=== PATIENT | female | born 1955 | race Caucasian/White ===

== ENCOUNTER 2018-07-26 07:27 | Day surgery (SDC) | payer BC ==
[~2018-07-26 07:27] MED LIST: ACETAMINOPHEN 1,000 MG/100 ML BTL IV ONE; CELECOXIB 100 MG CAPSULE PO ONE; CLINDAMYCIN 600MG/50ML PREMIX 600 MG/50 ML BAG IVPB ONE; FAMOTIDINE 20MG TABLET PO ONE; MECLIZINE 25 MG TABLET PO ONE; METOCLOPRAMIDE 10 MG TABLET PO ONE
[2018-07-26] MEDS ORDERED: ROPIVACAINE HCL (NAROPIN) /PF 5MG/ML 20ML VIAL IV ONE (07:28)
[2018-07-26] MEDS ORDERED: MIDAZOLAM HCL 2MG/2ML VIAL IV ONE (07:28)
[2018-07-26] MEDS ORDERED: EPHEDRINE SULFATE 50 MG/ML ML IV ONE (07:28)
[2018-07-26] MEDS ORDERED: PROPOFOL 10 MG/ML VIAL IV ONE (07:28)
[2018-07-26] MEDS ORDERED: DEXAMETHASONE 4 MG/ML 1ML VIAL IVP ONE (07:28)
[2018-07-26] MEDS ORDERED: FENTANYL PF 100MCG/2ML VIAL IV ONE (07:28)
[2018-07-26] MEDS ORDERED: LIDOCAINE 2% MDV (20MG/ML) 20ML VIAL IV ONE (07:28)
[2018-07-26] MEDS ORDERED: BUPIVACAINE 0.25% W/EPI MPF 30ML VIAL IVP ONE (07:28)
[2018-07-26] MEDS ORDERED: BUPIVACAINE LIPOSOME 266MG/20ML VIAL IV ONE (07:28)
[2018-07-26] MEDS ORDERED: ONDANSETRON HCL IV 4 MG/2 ML VIAL IVP PRN (11:00)
[2018-07-26] MEDS ORDERED: SENNOSIDES/DOCUSATE SODIUM UD CAPSULE PO PRN (11:00)
[2018-07-26] MEDS ORDERED: DIPHENHYDRAMINE HCL 25 MG CAPSULE PO PRN (11:00)
[2018-07-26] MEDS ORDERED: METOCLOPRAMIDE HCL 10 MG/2 ML VIAL IVP PRN (11:00)
[2018-07-26] MEDS ORDERED: OXYCODONE/APAP 7.5MG/325MG TABLET PO PRN ×2 (11:00)
[2018-07-26] MEDS ORDERED: MAGNESIUM HYDROXIDE 30 ML UDC PO PRN (11:00)
[2018-07-26] MEDS ORDERED: HYDROCODONE/APAP 7.5/325MG TABLET PO PRN (11:00)
[2018-07-26] MEDS ORDERED: TRAMADOL HCL 50 MG TABLET PO PRN (11:00)
[2018-07-26] MEDS ORDERED: ZOLPIDEM TARTRATE 5 MG TABLET PO PRN (11:00)
[2018-07-26] MEDS ORDERED: HYDROMORPHONE HCL 2 MG/ML VIAL IV PRN (11:00)
[2018-07-26] MEDS ORDERED: AL HYDROX/MAG HYDROX 30ML UD PO PRN (11:00)
[2018-07-26] MEDS ORDERED: TRANEXAMIC ACID 1,000 MG in 0.9 % SODIUM CHLORIDE 100ML 100 ML IVPB ONE (13:00)
[2018-07-26] MEDS: RINGERS SOLUTION,LACTATED 1,000 ML IV SCH (13:36)
[2018-07-26] MEDS: HYDROCODONE/APAP 7.5/325MG TABLET PO PRN ×2 (15:29→21:58)
[2018-07-26] MEDS: PATIENT OWN MED: LANSOPRAZOLE 30 MG PO SCH (15:30)
--- NOTE | 2018-07-26 16:50 | Rehab Evaluation ---
Patient Information - Patient Information Diagnosis: OA R knee Ordered Treatment: PT Evaluate and Treat Status: Initial Evaluation Surgery: Yes Date of Surgery: 07/26/18 History: Detail (Pt with gradual R knee degeneration. R TKA was a planned procedure.) Past Med/Heidi Hx Detail: Detail Past Medical/Surgical Hx: PAST MEDICAL/SURGICAL HISTORY Past Surgical History EGD right knee scope 2014 laparoscopy; mastectomy left; knee scope right; hernia ventral; right wrist ORIF; left wrist CTR; right foot sx(club toe); EGD-several; couple colonoscopys; PMH - Respiratory Hx Respiratory Disorders Yes Hx Sleep Apnea Yes Hx of CPAP Yes: bipap PMH - Cardiovascular Hx Cardiovascular Disorders Yes Hx Abnormal EKG Yes: "slight heart attack" 1990 Hx Chest Pain No Hx Heart Attack Yes: mild 1990 no intervention Hx Hypertension Yes: on meds good control 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[employer] [facility] PMH - Neuro Hx Neurological Disorders No PMH - GI Hx Gastrointestinal Disorders Yes Hx Gastroesophageal Reflux Yes: barrets esophagus Hx Ulcer Yes PMH - Hx Genitourinary Disorders No PMH - Endocrine Hx Endocrine Disorders No PMH - Musculoskeletal Hx Musculoskeletal Disorders Yes Hx Arthritis Yes: knee and hands Hx Osteoporosis Yes: osteopenia Comment: ostepenia PMH - Psych Hx Psychiatric Problems Yes Hx Depression Yes PMH - Hematology/Oncology Hx Hematology/Oncology Yes Disorders Hx Cancer Yes: left breast Hx Chemotherapy Yes: 1995 Hx Radiation Therapy No Premorbid Status: Detail Social History: Detail (Pt lives with spouse in two story home with 4 steps to enter and 2 handrails. Pt has a tub/hand-held shower, and a standard height toilet. Pt currently owns a RW, cane, and shower chair.) Precautions: [place], Fall - Time With Patient Total Time Spent With Patient (Min): 60 Treatment Procedures: Detail (PT eval, bed mobility, transfers, ambulation.) Subjective Information - Subjective Information Per Patient (Pt awake, alert, cooperative for therapy. Reports full sensation in operative LE.) Objective Data - Pain Pain Present: Yes Pain Intensity: 3 Pain Scale Used: Numeric (1 - 10) - Mental Status Patient Orientation: Oriented x3 - Visual Perception Appears within normal limits for therapeutic activities - ROM Not within normal limits (Impaired R knee flexion/extension ROM. CPM set at 0 degrees extension to 60 degrees flexion.) - Strength/Tone Not within normal limits (Decreased R hip flexion, R knee flexion/extension, grossly 3-/5.) - Coordination Appears within normal limits for therapeutic activities - Bed Mobility Needs Assist (Pt performed sup>sit with use of bed rails and min A for RLE movement. Pt reported lightheadedness upon sitting, resolved with seated rest.) - Transfers Needs Assist (Pt performed sit<>stand from bed using RW and min A for steadying and safety. Verbal and tactile cues given for technique. Pt performed toilet transfer using grab bars and mod A for rising/lowering control.) - Balance Balance Sitting: Good Balance Standing: Good - Sensation Intact (Intact with light touch.) - Gait Detail (Pt amb 150' with RW and min A for steadying and safety. Pt amb with step -to pattern, decreased weight shift to R, and increased use of UEs. No LOB or knee buckling.) Therapy Assessment - Therapy Assessment Detail (Pt impairments are consistent with surgery. Pt requires assistance with bed mobility, transfers, and gait. She is a good candidate for inpatient physical therapy.) Patient Education - Patient Education Teaching Topic: Exercise/Activity, Precautions Response: Verbalize Understanding Teaching Method: Discussion Teaching Recipient: Patient, Significant Other Barriers To Learning: None Problem List - Problem List Physical Therapy Problem List: Detail (Impaired bed mobility, tranfers, and gait mechanics.) Goals - Goals Physical Therapy Goals: 1) Pt will perform bed mobility independently. 2) Pt will perform transfers with least restrictive assistive device, independent. 3 ) Pt will ambulate 200' with least restrictive assistive device, independent. 4 ) Pt will ascend/descend 4 steps with B UE support and min A for steadying and safety. Prognosis - Prognosis Good Plan - Plan Physical Therapy Plan: Pt will be seen by PT 1-2 times tomorrow to work on current impairments to facilitate safe return home.
[2018-07-26] MEDS: CLINDAMYCIN 600MG/50ML PREMIX 600 MG/50 ML BAG IVPB SCH (17:41)
[2018-07-26] MEDS: TRAMADOL HCL 50 MG TABLET PO PRN (19:03)
[2018-07-26] MEDS: ASPIRIN 325 MG TAB ENTERIC-COATED PO SCH (21:53)
[2018-07-26] MEDS ORDERED: PATIENT OWN MED: GABAPENTIN 300 MG PO SCH (22:00)
[2018-07-26] MEDS ORDERED: PATIENT OWN MED: ATORVASTATIN 40 MG PO SCH (22:00)
[2018-07-27] MEDS: CLINDAMYCIN 600MG/50ML PREMIX 600 MG/50 ML BAG IVPB SCH ×2 (01:50→09:04)
[2018-07-27] MEDS: HYDROCODONE/APAP 7.5/325MG TABLET PO PRN ×2 (04:59→09:30)
[2018-07-27] MEDS: RINGERS SOLUTION,LACTATED 1,000 ML IV SCH (06:21)
[2018-07-27] MEDS: PATIENT OWN MED: LANSOPRAZOLE 30 MG PO SCH (06:22)
[2018-07-27 06:24] LABS: HEMATOCRIT 35.3 % (35.0-47.0); HEMOGLOBIN 10.9 gm/dl (11.6-16.0); MEAN CELL VOLUME 93.1 fl (81-97); MEAN CORPUSCULAR HGB CONC 30.9 g/dl (32-36); MEAN PLATELET VOLUME 10.5 fl (7.4-10.4); PLATELET COUNT 194 K/uL (130-400); RED BLOOD COUNT 3.79 M/uL (3.80-5.40); RED CELL DISTRIBUTION WIDTH 14.2 % (11.5-14.5)
[2018-07-27 06:29] LABS: MEAN CORPUSCULAR HEMOGLOBIN 28.7 pg (27-33)
[2018-07-27] MEDS: ASPIRIN 325 MG TAB ENTERIC-COATED PO SCH (09:25)
[2018-07-27] MEDS ORDERED: LISINOPRIL PO SCH (10:00)
[2018-07-27] MEDS ORDERED: PATIENT OWN MED: RALOXIFENE 60 MG PO SCH (10:00)
[2018-07-27] MEDS ORDERED: HCTZ PO SCH (10:00)
[2018-07-27] MEDS ORDERED: LISINOPRIL 20 MG TABLET PO SCH (10:00)
[2018-07-27] MEDS ORDERED: CELECOXIB 100 MG CAPSULE PO SCH (10:00)
[2018-07-27] MEDS ORDERED: PATIENT OWN MED: SERTRALINE 100 MG PO SCH (10:00)
--- NOTE | 2018-07-27 10:15 | Rehab Evaluation ---
Patient Information - Patient Information Diagnosis: OA R knee Ordered Treatment: OT Evaluate and Treat Status: Initial Evaluation Surgery: Yes (right TKA) Date of Surgery: 07/26/18 History: Detail (Pt with gradual R knee degeneration. 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[employer] [facility] PMH - Neuro Hx Neurological Disorders No PMH - GI Hx Gastrointestinal Disorders Yes Hx Gastroesophageal Reflux Yes: barrets esophagus Hx Ulcer Yes PMH - Hx Genitourinary Disorders No PMH - Endocrine Hx Endocrine Disorders No PMH - Musculoskeletal Hx Musculoskeletal Disorders Yes Hx Arthritis Yes: knee and hands Hx Osteoporosis Yes: osteopenia Comment: ostepenia PMH - Psych Hx Psychiatric Problems Yes Hx Depression Yes PMH - Hematology/Oncology Hx Hematology/Oncology Yes Disorders Hx Cancer Yes: left breast Hx Chemotherapy Yes: 1995 Hx Radiation Therapy No Social History: Detail (Pt lives with spouse in two story home with 4 steps to enter and 2 far apart handrails. Pt has a tub/shower combination with a hand- held shower and shower chair, and a standard height toilet. Pt currently owns a 2 wheeled walker, cane, and shower chair. Pt is typically responsible for IADLs although spouse will be assisting.) Precautions: [place], Fall - Time With Patient Total Time Spent With Patient (Min): 35 Treatment Procedures: Detail (OT eval low complexity) Subjective Information - Subjective Information Per Patient Objective Data - Pain Pain Present: Yes (2-12/02) - Mental Status Patient Orientation: Oriented x3 - Visual Perception Appears within normal limits for therapeutic activities - ROM Within normal limits (Timmy UE AROM WNL) - Strength/Tone Within normal limits (Timmy UE strength WNL) - Coordination Appears within normal limits for therapeutic activities - Bed Mobility Independent (Ind with supine to sit) - Transfers Independent (Ind with sit to stand from EOB, toilet and chair heights.) - Balance Balance Sitting: Good Balance Standing: Good - Sensation Intact - Gait Detail (Pt ambulating in room with 2 wheeled walker Indly.) - ADL's/IADL's Detail (Pt educated and able to demonstrate learning of modified LE dressing techniques including doffing briefs and donning underpants, pants and slip on shoes. Reviewed kitchen and bathroom modifications and safety and donning SARA hose, pt verbalized learning. Pt is Ind with toileting.) Therapy Assessment - Therapy Assessment Detail (Pt is safe and Ind with modified LE dressing techniques.) Problem List - Problem List Physical Therapy Problem List: Detail (Impaired bed mobility, tranfers, and gait mechanics.) Occupational Therapy Problem List: Detail (No current IP OT problems identified. ) Goals - Goals Physical Therapy Goals: 1) Pt will perform bed mobility independently. 2) Pt will perform transfers with least restrictive assistive device, independent. 3 ) Pt will ambulate 200' with least restrictive assistive device, independent. 4 ) Pt will ascend/descend 4 steps with B UE support and min A for steadying and safety. Occupational Therapy Goals: No IP OT goals identified. Prognosis - Prognosis Good Plan - Plan Physical Therapy Plan: Pt will be seen by PT 1-2 times tomorrow to work on current impairments to facilitate safe return home. Occupational Therapy Plan: No further IP OT recommended. Thank you for this referral.
--- NOTE | 2018-07-27 10:20 | Operative Note ---
DATE OF SURGERY: 07/26/2018 Surgeon: Dean Mccray DO PREOPERATIVE DIAGNOSIS: Primary osteoarthritis of the right knee. POSTOPERATIVE DIAGNOSIS: Primary osteoarthritis of the right knee. OPERATION: Right total knee arthroplasty. DESCRIPTION OF PROCEDURE: This 63-year-old female was taken to the operating room and placed in the supine position on the operating room table after spinal anesthesia had been induced by the department of anesthesia. The right lower extremity was elevated. It was prepped with Hibiclens and draped in the usual sterile fashion, exsanguinated and the tourniquet inflated to 300 mmHg. All scrub personnel wore personal isolation suits. An anterior longitudinal midline incision was made followed by a medial parapatellar arthrotomy incision. An intracondylar drill hole was made for the intramedullary alignment criss and a 5-degree valgus 10 mm cut was made on the distal femur because there was very little bone shaved off the lateral femoral condyle with a 9 mm cut. This gave us much better bony base to set the prosthesis. We then placed a sizing jig, and a size 67 was seen to be the appropriate size in the anterior-posterior dimension but too wide in the medial-lateral. Therefore, we moved the pin sites 2 mm anteriorly and placed a 65 mm cutting block. The appropriate cuts were made in 3 degrees of external rotation, and the wafers of bone were removed. We then used an extramedullary alignment guide to cut the proximal tibia referencing a 10 mm cut off the lateral tibial plateau. However, this was not sufficient to get below the subchondral bone and an additional 2 mm was taken. The bone cut was made. The stem punch was used. Trial components were inserted. With a 13 mm bearing, there was very slight mid flexion instability. Therefore, we decided to proceed with a posterior stabilized component. Therefore, this was removed. The jig was affixed and the notch cut was made. Following this, we cut the patella, restored it to anatomic height, and the wound was copiously irrigated with pulse lavage, lactated Ringer's solution. Exparel was injected into the posterior, medial, and lateral corners of the joint. Bony surfaces were dried. All components were cemented and excess cement removed after the insertion of each component. Initially the 75 tibial baseplate was cemented into place followed by the insertion of the 65 mm posterior stabilized femur and finally the 14 mm posterior stabilized plus tibial bearing which was E1 poly. The patella was restored to anatomic height with 34 x 8.6 mm bearing. Subsequently, the knee was again taken through range of motion with excellent stability of the components being identified. Exparel was injected in the posterior, medial, and lateral corners of the joint and also into the periosteum and joint capsule of the proximal tibia and distal femur. A drain was placed through a separate stab incision, and the arthrotomy incision was closed with a #2 Vicryl. The subcutaneous tissue was closed with 0 Vicryl and the skin was stapled. Sterile dressings were applied with a Polar Care. The patient was taken to the recovery room in satisfactory condition. GROSS PATHOLOGY: This patient demonstrated advanced osteoarthritis, full-thickness articular cartilage loss noted both medially and laterally with large osteophytes present on both sides of the joint but surprisingly more on the lateral side. Final components inserted were a [employer] Vanguard size 65 posterior stabilized femur, a 75 tibial baseplate, a 14 mm posterior stabilized E1 bearing, and a 34 x 8.6 mm patella was used. CC: DO LIBIA Mendez
[2018-07-27] MEDS ORDERED: ACETAMINOPHEN 325 MG TAB PO PRN (11:00)
--- NOTE | 2018-07-27 11:26 | Physical Therapy Tx Note ---
Physical Therapy Tx Note - Treatment Note Tolerated: Good Total Time Spent With Patient: 25 Physical Therapy Tx Note: Detail (The patient was independent with supine to and from sit transfer and sit to and from stand transfer. The patient ambulated with front wheeled walker a distance of 200 feet independently WBAT on the R LE. The patient ambulated on stairs, using proper technique with use on folded walker and one railing with supervision of 1 for safety. The patient was independent with a HEP of TKA exercises including: heel slides, SLR, ankle pumps , quad sets, gluteal sets and hamstring sets. The patient has met all inpatient goals and is discharged from inpatient therapy.) Physical Therapy Problem List: Detail (Impaired bed mobility, tranfers, and gait mechanics.) Physical Therapy Goals: 1) Pt will perform bed mobility independently.(Goal met) . 2) Pt will perform transfers with least restrictive assistive device, independent.(Goal Met). 3) Pt will ambulate 200' with least restrictive assistive device, independent.(Goal Met). 4) Pt will ascend/descend 4 steps with B UE support and min A for steadying and safety. (Goal Met) Physical Therapy Plan: The patient is discharged from inpatient PT due to all goals being met.
[2018-07-27] MEDS: TRAMADOL HCL 50 MG TABLET PO PRN (13:47)
--- NOTE | 2018-07-30 11:40 | Discharge Summary ---
DATE OF ADMISSION: 07/26/2018 DATE OF DISCHARGE: 07/27/2018 ADMITTING DIAGNOSIS: Osteoarthritis of the left hip. DISCHARGE DIAGNOSIS: Osteoarthritis of the left hip. OPERATIVE PROCEDURE: Left total hip arthroplasty. DESCRIPTION. This 63-year-old female was admitted to the hospital for elective total hip arthroplasty. She cleared physical therapy. Showed no evidence of complication first postoperative day with no shortness of breath, chest pain, or sign of DVT. She was cleared by Physical Therapy. She will follow up in the office in 2 weeks. Routine wound care instructions were given. She will have outpatient physical therapy. She is to wear her SARA hose during the day and remove them at night. She was given a prescription for take [place] 7.5/325, #60, 1 every 4 hours as necessary for pain, and she will take aspirin 325 mg daily for 2 weeks. Should she have any problems prior to being seen, she was instructed to call my office. LIBIA
== END 2018-07-27 14:00 | disposition home or self-care (01) ==
LOC: SUR 07:27 → MEDSURG 12:32 → SUR 07-27 14:00
PROVIDERS: ATTEND Orthopaedic Surgery
DX: M17.11 Unilateral primary osteoarthritis, right knee (principal); I10 Essential (primary) hypertension; E78.00 Pure hypercholesterolemia, unspecified; I25.10 Atherosclerotic heart disease of native coronary artery without angina pectoris; G47.33 Obstructive sleep apnea (adult) (pediatric)
CPT/HCPCS: 27447; 01402; 64447; 85025; J3010; C9290; J3490; J2795; G8978; G8979 ×2; G8980; G8987; G8988; G8989; 76942; 97110; 97530; J7120

== ENCOUNTER 2019-04-18 05:34 | Day surgery (SDC) | payer BC ==
[2019-04-18] MEDS ORDERED: SUCCINYLCHOLINE 20 MG/ML 10ML IVP ONE (05:35)
[2019-04-18] MEDS ORDERED: FENTANYL PF 100MCG/2ML VIAL IV ONE (05:35)
[2019-04-18] MEDS ORDERED: EPHEDRINE SULFATE 50 MG/ML ML IV ONE (05:35)
[2019-04-18] MEDS ORDERED: DEXAMETHASONE 4 MG/ML 1ML VIAL IVP ONE ×2 (05:35)
[2019-04-18] MEDS ORDERED: ROCURONIUM BROMIDE 50MG/5ML VIAL IV ONE (05:35)
[2019-04-18] MEDS ORDERED: BUPIVACAINE 0.25% MPF 30ML VIAL IVP ONE (05:35)
[2019-04-18] MEDS ORDERED: ONDANSETRON HCL IV 4 MG/2 ML VIAL IVP ONE (05:35)
[2019-04-18] MEDS ORDERED: MIDAZOLAM HCL 2MG/2ML VIAL IV ONE (05:35)
[2019-04-18] MEDS ORDERED: SEVOFLURANE 250 ML INH ONE (05:35)
[2019-04-18] MEDS ORDERED: PROPOFOL 10 MG/ML VIAL IV ONE (05:35)
[2019-04-18] MEDS ORDERED: LIDOCAINE 2% MDV (20MG/ML) 20ML VIAL IV ONE (05:35)
[2019-04-18] MEDS ORDERED: BUPIVACAINE LIPOSOME/PF 133MG/10ML VIAL IV ONE (05:35)
[2019-04-18] MEDS ORDERED: SUGAMMADEX SODIUM 200 MG/2 ML VIAL IV ONE (05:35)
[2019-04-18 05:58] LABS: ABSOLUTE NEUTROPHIL COUNT 3.58; BASO % 0.4 % (0-6); EOS % 4.2 % (0-6); GRAN % 64.8 % (47-80); HEMATOCRIT 43.1 % (35.0-47.0); HEMOGLOBIN 13.5 gm/dl (11.6-16.0); LYMPH % 21.7 % (16-45); MEAN CELL VOLUME 92.5 fl (81-97); MEAN CORPUSCULAR HGB CONC 31.3 g/dl (32-36); MEAN PLATELET VOLUME 11.1 fl (7.4-10.4); MONO % 8.9 % (0-9); PLATELET COUNT 200 K/uL (130-400); RED BLOOD COUNT 4.66 M/uL (3.80-5.40); RED CELL DISTRIBUTION WIDTH 13.9 % (11.5-14.5); WHITE BLOOD COUNT W/O DIFF 5.5 K/uL (4.2-12.2)
[2019-04-18] MEDS ORDERED: RINGERS SOLUTION,LACTATED 1,000 ML IV ONE ×2 (06:00→08:15)
[2019-04-18] MEDS ORDERED: CLINDAMYCIN 600MG/50ML PREMIX 600 MG/50 ML BAG IVPB ONE (06:00)
[2019-04-18 06:08] LABS: BLOOD UREA NITROGEN 16 mg/dL (8-23); CREATININE 0.7 mg/dL (0.5-0.9); EST GLOMERULAR FILTRATION RATE > 60 mL/min; GLUCOSE,RANDOM 98 mg/dL (74-109)
[2019-04-18] MEDS ORDERED: EPINEPHRINE 1 MG/ML AMPUL IJ ONE (08:15)
--- NOTE | 2019-04-19 17:20 | Operative Note ---
DATE OF SURGERY: 04/18/2019 SURGEON: Dean Mccray DO PREOPERATIVE DIAGNOSES: 1. Tear of the left rotator cuff. 2. Impingement syndrome, left shoulder. 3. Tear of the anterior superior labrum, left shoulder. POSTOPERATIVE DIAGNOSES: 1. Tear of the left rotator cuff. 2. Impingement syndrome, left shoulder. 3. Tear of the anterior superior labrum, left shoulder. OPERATION: 1. Arthroscopic repair of the left rotator cuff. 2. Arthroscopic subacromial decompression and acromioplasty of left shoulder. 3. Arthroscopic debridement is done at labrum of left shoulder. PROCEDURE: This 63-year-old female was taken to the operating room and placed in the supine position on the operating room table. A general anesthetic was administered. Placed in the beach chair position with all bony prominences well padded and head well secured. The left shoulder was prepped with Hibiclens and draped in the usual sterile fashion. A posterior portal was established in the glenohumeral joint, and initial evaluation of the joint demonstrated normal appearance of the articular cartilage in the glenoid. However, there was a defect in the center of the articulating surface of the humeral head, and this was approximately 0.75 cm. This was a grade 2 lesion. No other defects were identified. There was a defect in the anterior aspect of the supraspinatus tendon adjacent to and just posterior to the biceps tendon. This appeared to be a full-thickness tear. The biceps itself appeared to be normal. Glenohumeral ligaments and subscapularis were normal. The labrum was probed, and marked fraying of the anterior labrum from about the 9-o'clock position to about the 2-o'clock position was present. We debrided the frayed surface of the labrum and then probed the attachment site and found it to be firmly attached to the bony glenoid, and so after debridement, it was not further disturbed. The scope was then placed in the subacromial space, and thorough subacromial decompression and acromioplasty was performed. This gave us excellent exposure. The rotator cuff was seen to be significantly torn from the bursal surface. Only a few fibers remaining at the articular margin. This was thoroughly debrided to healthy tissue. We then had a U-shaped tear which was repaired using [employer] Speedbridge technique in the standard fashion using 4.75 SwiveLock anchors. Two tapes were used, one FiberTape and one TigerTape, in the anchors adjacent to the articular cartilage, and then a single limb of each one of these sutures was grasped and placed through a 3rd SwiveLock anchor placed inferior to the anterior anchor. The sutures were cut. The remaining 2 tails of suture were placed through a 4th SwiveLock anchor inferior to the posterior anchor, and these were then drawn tight as well and the anchor impaled and the sutures were cut. This gave us an excellent repair of the rotator cuff. We then irrigated the wound. Suctioned the wound and removed the instruments. The portals were closed with 4-0 nylon suture. Sterile dressings were applied and an UltraSling applied. The patient was taken to the recovery room in satisfactory condition. GROSS PATHOLOGY: This patient demonstrated a full-thickness tear of the supraspinatus tendon. There was evidence of tearing of the anterior and superior labrum as described and minimal chondromalacia of the humeral head was present. LIBIA
== END 2019-04-18 09:42 | disposition home or self-care (01) ==
LOC: SUR 05:34
PROVIDERS: ATTEND Orthopaedic Surgery
DX: M75.122 Complete rotator cuff tear or rupture of left shoulder, not specified as traumatic (principal); S43.432A Superior glenoid labrum lesion of left shoulder, initial encounter; M75.42 Impingement syndrome of left shoulder; I10 Essential (primary) hypertension; E78.00 Pure hypercholesterolemia, unspecified; K21.9 Gastro-esophageal reflux disease without esophagitis; I25.10 Atherosclerotic heart disease of native coronary artery without angina pectoris; G47.33 Obstructive sleep apnea (adult) (pediatric); Z96.651 Presence of right artificial knee joint; Z90.12 Acquired absence of left breast and nipple
CPT/HCPCS: 29826; 29827; 29822; 01630; 64418; 85025; 80048; J2405; J3010; J3490; C9290; 76942; J0171; J0330; J7120